=== PATIENT | female | born 1955 | race Caucasian/White ===

== ENCOUNTER 2020-12-17 06:59 | Day surgery (SDC) | payer BC ==
[~2020-12-17] VITALS: Ht 167.6 cm; Wt 153.0 kg
[2020-12-17] MEDS ORDERED: LIDOCAINE 2% PF 5 ML VIAL. ONE (07:00)
[2020-12-17] MEDS ORDERED: PROPOFOL 10 MG/ML (20ML) VIAL. IV ONE (07:00)
[2020-12-17] MEDS ORDERED: IV RINGERS,LACTATED 1000ML 1,000 ML IV SCH (07:00)
[2020-12-17] MEDS ORDERED: ZINC50TA39 PO (07:32)
[2020-12-17] MEDS ORDERED: CALC500T30 PO (07:32)
[2020-12-17] MEDS ORDERED: CHOL20009 PO (07:32)
[2020-12-17] MEDS ORDERED: ASPI-630 PO (07:32)
[2020-12-17] MEDS ORDERED: METO50TA6 PO (07:32)
[2020-12-17] MEDS ORDERED: HYDR50TA9 PO (07:32)
[2020-12-17] MEDS ORDERED: LISI20TA18 PO (07:32)
[2020-12-17] MEDS ORDERED: CETI5TAB2 PO (07:32)
[2020-12-17] MEDS ORDERED: UBID200C7 PO (07:32)
[2020-12-17 07:39] VITALS: BP 135/64
[2020-12-17 08:41] VITALS: BP 183/77
--- NOTE | 2020-12-19 16:16 | PATHOLOGY ---
[facility] Accession Number: [id number] . 01 Material submitted: . colon - DESCENDING COLON POLYP BIOPSY. Modifiers: descending . 01 Clinical history: . CRC COLONOSCOPY SCREENING . 02 Diagnosis: Colon biopsy, descending colon polyp: - Tubular adenoma. ([facility]:jorge; 12/19/2020) [facility] 12/19/2020 1408 Local . 02 Comment: There is no high-grade dysplasia or evidence of malignancy. ([facility]:jorge; 12/19/2020) . 02 Electronically signed: . Ángel Welsh MD, Pathologist NPI- [id number] . 01 Gross description: . Received in formalin labeled "Pestock, Ami and descending colon polyp biopsy". Received is a hawk-brown soft tissue fragment measuring 0.4 x 0.3 x 0.2 cm. The specimen is entirely submitted in cassette A1.([facility]; 12/18/2020) [facility] 12/18/2020 1631 Local . 02 Pathologist provided ICD-10: D12.4 . 02 CPT . 447364 Specimen Comment: A courtesy copy of this report has been sent to [phone], [phone] Specimen Comment: [id number] Specimen Comment: Report sent to / DR EDOUARD Performed at: 01 [facility] [address], [place] [id number] MD Vishnu Mcgrath MD Phone: [phone] Performed at: 02 [facility] [address] [place], [place] [id number] MD Ángel Welsh MD Phone: [phone]
== END 2020-12-17 08:58 | disposition home or self-care (01) ==
LOC: ENDOS 06:59
PROVIDERS: ATTEND Internal Medicine Gastroenterology
DX: Z12.11 Encounter for screening for malignant neoplasm of colon (principal); D12.4 Benign neoplasm of descending colon; K64.0 First degree hemorrhoids; K63.89 Other specified diseases of intestine; I10 Essential (primary) hypertension; G47.30 Sleep apnea, unspecified; M19.90 Unspecified osteoarthritis, unspecified site; Z90.710 Acquired absence of both cervix and uterus; Z98.890 Other specified postprocedural states; Z79.899 Other long term (current) drug therapy; Z79.82 Long term (current) use of aspirin
CPT/HCPCS: 45380; J2704

== ENCOUNTER → 2021-10-26 | Emergency (ER) | payer BC, MEDICARE ==
[~2021-10-26] VITALS: Ht 167.6 cm; Wt 146.0 kg
[~2021-10-26] MED LIST: ASPI-630 PO; CALC500T30 PO; CEPH500T PO; CEPHALEXIN 250 MG CAPSULE. PO STA; CETI5TAB2 PO; CHOL20009 PO; HYDR50TA9 PO; LISI20TA18 PO; METO50TA6 PO; PHEN100T82 PO; PHENAZOPYRIDINE 200 MG TABLET. PO ONE; UBID200C7 PO; ZINC50TA39 PO
[2021-10-26 21:26] LABS: BACTERIA,URINE FEW /HPF (0-FEW); RBC,URINE TNTC /HPF (0-2); WBC,URINE OCC /HPF (0-4)
--- NOTE | 2021-10-26 21:30 | PHYS DOC ---
Past Medical History Past Surgical History: No Surgical History Smoking Status: Never Smoker Alcohol Use: None General Adult EDM: Chief Complaint: BLOOD IN URINE HPI: HPI: Patient is a 66 year old female who present to ER for evaluation of frequent urination, pain with urination, blood in her urine started about 3 hours ago. Patient says she was diagnosed with UTI 2 weeks ago, she finished 10-day course of Macrobid. Patient denies any fever, no abdominal pain, no nausea vomiting. Patient denies any chest pain or any trouble breathing, no cough. Review of Systems: Review of Systems: Constitutional: Denies fever or chills. [] Eyes: Denies change in visual acuity. [] HENT: Denies nasal congestion or sore throat. [] Respiratory: Denies cough or shortness of breath. [] Cardiovascular: Denies chest pain or edema. [] GI: Denies abdominal pain, nausea, vomiting, bloody stools or diarrhea. [] : Positive for dysuria, hematuria, urinary frequency. Musculoskeletal: Denies back pain or joint pain. [] Integument: Denies rash. [] Neurologic: Denies headache, focal weakness or sensory changes. [] Endocrine: Denies polyuria or polydipsia. [] Lymphatic: Denies swollen glands. [] Psychiatric: Denies depression or anxiety. [] Heart Score: C/O Chest Pain: N/A Risk Factors: Risk Factors: DM, Current or recent (<one month) smoker, HTN, HLP, family history of CAD, obesity. Risk Scores: Score 0 - 3: 2.5% MACE over next 6 weeks - Discharge Home Score 4 - 6: 20.3% MACE over next 6 weeks - Admit for Clinical Observation Score 7 - 10: 72.7% MACE over next 6 weeks - Early Invasive Strategies Current Medications: Current Medications Medications (Trade) Dose Ordered Sig/Erica Start Time Stop Time Status Last Admin Dose Admin Cephalexin HCl (Keflex) 1,000 mg 1X STAT 10/26/21 21:21 10/26/21 21:23 DC Phenazopyridine HCl (Pyridium) 200 mg 1X ONCE 10/26/21 21:30 10/26/21 21:31 Allergies: Allergies: Allergies Coded Allergies Type Severity Reaction Last Updated Verified No Known Drug Allergies 10/26/21 No Physical Exam: PE: Constitutional: Well developed, well nourished, no acute distress, non-toxic appearance. [] HENT: Normocephalic, atraumatic, bilateral external ears normal, oropharynx moist, no oral exudates, nose normal. [] Eyes: PERRLA, EOMI, conjunctiva normal, no discharge. [] Neck: Normal range of motion, no tenderness, supple, no stridor. [] Cardiovascular:Heart rate regular rhythm, no murmur [] Lungs & Thorax: Bilateral breath sounds clear to auscultation [] Abdomen: Bowel sounds normal, soft, no tenderness, no masses, no pulsatile masses. [] Skin: Warm, dry, no erythema, no rash. [] Back: No tenderness, no CVA tenderness. [] Extremities: No tenderness, no cyanosis, no clubbing, ROM intact, no edema. [] Neurologic: Alert and oriented X 3, normal motor function, normal sensory function, no focal deficits noted. [] Psychologic: Affect normal, judgement normal, mood normal. [] Current Patient Data: Labs: Laboratory Tests Test 10/26/21 21:05 Urine Collection Type Unknown Urine Color (Auto) Red Urine Turbidity Bloody Urine pH (Auto) Urine Specific [place] Urine Protein (Auto) mg/dL Urine Glucose (Auto)(UA) mg/dL Urine Ketones (Auto) mg/dL Urine Blood (Auto) Urine Nitrite Urine Bilirubin (Auto) Urine Urobilinogen (Auto) mg/dL Urine Leukocyte Esterase (Auto) Urine RBC Tntc /HPF Urine WBC Occ /HPF Urine Squamous Epithelial Cells Few /LPF Urine Bacteria Few /HPF Current Medications Medications (Trade) Dose Ordered Sig/Erica Route PRN Reason Start Time Stop Time Status Last Admin Dose Admin Phenazopyridine HCl (Pyridium) 200 mg 1X ONCE PO 10/26/21 21:30 10/26/21 21:31 DC 10/26/21 21:30 Cephalexin HCl (Keflex) 1,000 mg 1X STAT PO 10/26/21 21:21 10/26/21 21:23 DC 10/26/21 21:21 Vital Signs: Vital Signs Date Time Temp Pulse Resp B/P (MAP) Pulse Ox O2 Delivery O2 Flow Rate FiO2 10/26/21 21:06 98.2 82 18 148/66 (93) 100 Room Air 98.2 EKG: EKG: [] Radiology/Procedures: Radiology/Procedures: [] Course & Med Decision Making: Course & Med Decision Making Pertinent Labs and Imaging studies reviewed. (See chart for details) Patient does have a clinical symptom of urinary tract infection, patient was nontoxic, she had no abdominal pain, no fever. Patient be discharged home with Keflex and Pyridium ,patient was advised to follow-up with her family physician in a couple days if she not get better. Patient was amenable to plan of care. Suzi Disclaimer: Suzi Disclaimer: This electronic medical record was generated, in whole or in part, using a voice recognition dictation system. Departure Departure Impression: Primary Impression: Urinary tract infection Disposition: HOME / SELF CARE / HOMELESS Referrals: OMAR EDOUARD MD (PCP) Follow up with your doctor this week Patient Instructions: Urinary Tract Infection Additional Instructions: Thank you for visiting our Emergency Department. We appreciate you trusting us with your care. If any additional problems come up don't hesitate to return to visit us. Please follow up with your primary care provider so they can plan additional care if needed and know about the problem that you had. If symptoms worsen come back to the Emergency Department. Any concerning symptoms that start such as chest pain, shortness of air, weakness or numbness on one side of the body, running high fevers or any other concerning symptoms return to the ER. Scripts Phenazopyridine Hcl (PYRIDIUM) 100 Mg Tablet 1 TAB PO TID for urinary discomfort for 2 Days, #6 TAB 0 Refills Prov: BRITT ARMANDO DO 10/26/21 Cephalexin (CEPHALEXIN) 500 Mg Tablet 1 TAB PO QID for 7 Days, #28 TAB Prov: BRITT ARMANDO DO 10/26/21 BRITT ARMANDO DO October 26, 2021 21:30
[2021-10-26 22:00] VITALS: BP 137/64
== END | disposition home or self-care (01) ==
LOC: ER 20:43
DX: N39.0 Urinary tract infection, site not specified (principal)
CPT/HCPCS: 81001; 99283